=== PATIENT | female | born 1980 | race African-American/Black ===

== ENCOUNTER 2018-03-23 12:29 | Emergency (ER) | payer OTHER ==
[~2018-03-23] VITALS: Ht 162.6 cm; Wt 74.8 kg
[2018-03-23 12:36] VITALS: BP_SYST 152
[2018-03-23 13:48] LABS: CALCIUM 9.5 mg/dL (8.4-11.0); CREATININE 0.96 mg/dL (0.55-1.30); POTASSIUM 3.5 mmol/L (3.5-5.1)
[2018-03-23 13:51] LABS: BASOPHILS % (AUTO) 0.6 % (0.0-2.0); EOSINOPHILS # (AUTO) 0.3 K/uL (0.0-0.4); EOSINOPHILS % (AUTO) 3.6 % (0.0-4.0); HEMATOCRIT 40.4 % (36-48); HEMOGLOBIN 12.8 g/dL (12.0-16.0); LYMPHOCYTES # (AUTO) 2.4 K/uL (1.0-5.5); LYMPHOCYTES % (AUTO) 31.2 % (20.5-51.5); MEAN CORPUSCULAR HEMOGLOBIN 24 pg (27-31); MEAN CORPUSCULAR HGB CONC 32 % (32-36); MEAN CORPUSCULAR VOLUME 75 fL (79.0-98.0); MONOCYTES # (AUTO) 0.4 K/uL (0.0-1.0); MONOCYTES % (AUTO) 5.2 % (1.7-9.3); NEUTROPHILS # (AUTO) 4.5 K/uL (1.8-7.7); NEUTROPHILS % (AUTO) 59.4 % (40.0-70.0); PLATELET COUNT (AUTO) 424 K/uL (130-430); RED BLOOD CELL COUNT(AUTO) 5.36 MIL/uL (4.2-6.2); RED CELL DISTRIBUTION WIDTH 15.8 % (9.0-15.0); WHITE BLOOD COUNT (AUTO) 7.6 K/uL (4.8-10.8)
[2018-03-23 13:53] LABS: ALBUMIN 3.8 g/dL (3.4-4.8); TOTAL BILIRUBIN 0.6 mg/dL (0.0-1.0)
[2018-03-23 15:11] VITALS: BP_SYST 126
== END 2018-03-23 15:11 | disposition home or self-care (01) ==
LOC: SED 12:29
DX: F41.9 Anxiety disorder, unspecified (principal); R03.0 Elevated blood-pressure reading, without diagnosis of hypertension
CPT/HCPCS: 36415; 71045; 80053; 81025; 85025; 93005; 99284

== ENCOUNTER 2018-10-27 16:57 | Emergency (ER) | payer OTHER ==
[~2018-10-27] VITALS: Ht 152.4 cm; Wt 73.9 kg
[2018-10-27 17:00] VITALS: BP_SYST 143
--- NOTE | 2018-10-27 18:04 | NUR ---
BROUGHT BACK TO BED#7 AND TRIAGED. REPORT GIVEN TO DIMPLE
--- NOTE | 2018-10-27 18:20 | NUR ---
ER EMILIO Fisher examining patient.
--- NOTE | 2018-10-27 18:40 | NUR ---
Pt AAOx4 ambulated into ED c/o "burning" pain to bladder. Recently dx with UTI and has completed abx with no relief; pt reports "I think I have a yeast infection." No other injuries/complaints per pt/noted. Will continue to monitor.
[2018-10-27 18:55] LABS: BILIRUBIN,URINE NEGATIVE (NEGATIVE); BLOOD, URINE NEGATIVE (NEGATIVE); CLARITY/URINE SL HAZY (CLEAR); COLOR,URINE YELLOW (YELLOW); GLUCOSE,URINE NEGATIVE (NEGATIVE); KETONES,URINE NEGATIVE (NEGATIVE); LEUKOCYTE ESTERASE ,URINE NEGATIVE (NEGATIVE); NITRITE, URINE NEGATIVE (NEGATIVE); PROTEIN URINE NEGATIVE (NEGATIVE)
--- NOTE | 2018-10-27 19:05 | NUR ---
Pelvic exam performed by Natalia JHAVERI with Amira RN at bedside for entire examination. Patient tolerated procedure well. Patient assisted to position of comfort after examination.
--- NOTE | 2018-10-27 19:08 | NUR ---
Vaginal wet mount collected and sent to lab
[2018-10-27] MEDS ORDERED: FLUCONAZOLE 200 MG TABLET (DIFLUCAN) PO ONE (19:45)
[2018-10-27 20:08] VITALS: BP_SYST 141
--- NOTE | 2018-10-27 20:08 | NUR ---
Patient given written and verbal discharge instructions and verbalizes understanding. ER MD discussed with patient the results and treatment provided. Patient in stable condition. ID arm band removed. Rx of FLAGYL given. Patient educated on pain management and to follow up with PMD. Pain Scale 0/10. Opportunity for questions provided and answered. Medication side effect fact sheet provided.
[2018-10-30 00:06] LABS: CHLAMYDIA TRACHOMATIS NAA Negative (Negative); NEISSERIA GONORRHOEAE NAA Negative (Negative)
== END 2018-10-27 20:08 | disposition home or self-care (01) ==
LOC: SED 16:57
DX: R10.30 Lower abdominal pain, unspecified (principal); Z90.89 Acquired absence of other organs
CPT/HCPCS: 81003; 81025; 87205-TC; 87210-TC; 87491; 87591; 99283

== ENCOUNTER 2018-11-19 16:55 | Emergency (ER) | payer OTHER ==
[~2018-11-19] VITALS: Ht 152.4 cm; Wt 73.9 kg
[2018-11-19 17:09] VITALS: BP_SYST 139
[2018-11-19 17:59] LABS: BILIRUBIN,URINE NEGATIVE (NEGATIVE); BLOOD, URINE NEGATIVE (NEGATIVE); CLARITY/URINE CLEAR (CLEAR); COLOR,URINE YELLOW (YELLOW); GLUCOSE,URINE NEGATIVE (NEGATIVE); KETONES,URINE TRACE (NEGATIVE); LEUKOCYTE ESTERASE ,URINE NEGATIVE (NEGATIVE); NITRITE, URINE NEGATIVE (NEGATIVE); PROTEIN URINE NEGATIVE (NEGATIVE); UROBILINOGEN,URINE 0.2 (0.2-1.0)
--- NOTE | 2018-11-19 18:53 | NUR ---
LWBS AT 18:54
--- NOTE | 2018-11-19 18:53 | NUR ---
Per termination clerk, pt lwbs.
== END 2018-11-19 18:53 | disposition left against medical advice (07) ==
LOC: SED 16:55
DX: R10.9 Unspecified abdominal pain (principal); Z53.21 Procedure and treatment not carried out due to patient leaving prior to being seen by health care provider
CPT/HCPCS: 81003; 99281